=== PATIENT | male | born 1960 | race Caucasian/White ===

== ENCOUNTER 2016-07-08 06:01 | Day surgery (SDC) | payer OTHER ==
[2016-07-07 10:19] VITALS: BMI 24.0
[~2016-07-08] VITALS: Ht 185.4 cm; Wt 80.2 kg
[2016-07-08] VITALS (8 sets, daily range): BP systolic 90–132; BP diastolic 50–76; PULSE 54–62; RESP 11–20; Ht 185.4 cm; Wt 80.2 kg
[~2016-07-08 06:01] MED LIST: SOD CHLORIDE 0.9% 1,000 ML IV SCH
[2016-07-08] MEDS ORDERED: SIMV-39 PO (06:46)
[2016-07-08] MEDS ORDERED: LISI20TA11 PO (06:46)
[2016-07-08] MEDS ORDERED: LIDOCAINE 2% (MDV) 20 ML INJ ONE (07:29)
[2016-07-08] MEDS ORDERED: POLYMYXIN/BACITRACIN 1L IRRIG ONE (07:29)
[2016-07-08] MEDS ORDERED: BUPIVACAINE 0.5% (SDV) 30 ML INJ ONE (07:29)
[2016-07-08] MEDS ORDERED: BUPIVACAINE 0.25% (MPF) 30 ML INJ ONE (07:29)
[2016-07-08] MEDS ORDERED: CEFAZOLIN 2 GM/50 ML (PMX) 50 ML IVPB ONE (08:00)
[2016-07-08] MEDS ORDERED: MIDAZOLAM 1 MG/ML 2 ML INJ ONE (08:04)
[2016-07-08] MEDS ORDERED: PROPOFOL 20 ML ONE (08:04)
[2016-07-08] MEDS ORDERED: FENTAnyl 50 MCG/ML VIAL ONE (08:04)
[2016-07-08] MEDS ORDERED: METOCLOPRAMIDE 10 MG INJ ONE (08:17)
[2016-07-08] MEDS ORDERED: DEXAMETHASONE 4 MG/ML 1 ML INJ ONE (08:17)
[2016-07-08] MEDS ORDERED: KETOROLAC 30 MG INJ ONE (08:17)
[2016-07-08] MEDS ORDERED: ONDANSETRON 4 MG INJ ONE (08:17)
[2016-07-08] MEDS ORDERED: PHENYLephrine (100 MCG/ML) 5ML SYG ONE (08:22)
[2016-07-08] MEDS ORDERED: CEFAZOLIN 1 GM INJ ONE (08:22)
[2016-07-08] MEDS ORDERED: GLYCOPYRROLATE 0.4 MG INJ ONE (08:23)
[2016-07-08] MEDS ORDERED: morphine (1 MG/ML) 10ML SYRINGE IV PRN ×3 (08:30)
[2016-07-08] MEDS ORDERED: MEPERIDINE 25 MG INJ IV PRN (08:30)
[2016-07-08] MEDS ORDERED: ONDANSETRON 4 MG INJ IV PRN (08:30)
[2016-07-08] MEDS ORDERED: HYDROmorphONE (0.2 MG/ML) 10ML SYG IV PRN ×3 (08:30)
[2016-07-08] MEDS ORDERED: ALBUMIN HUMAN 5% 250 ML IV PRN (08:30)
[2016-07-08] MEDS ORDERED: EPHEDrine SULFATE 50 MG/5 ML SYG IV PRN (08:30)
[2016-07-08] MEDS ORDERED: HYDROCODONE/APAP (5/325) TAB PO ONE (09:00)
--- NOTE | 2016-07-08 09:33 | RADRPT ---
PROCEDURE: XR Chest. CLINICAL INDICATION: Preoperative for neck mass. TECHNIQUE: Single frontal view. COMPARISON: None. FINDINGS: The lungs are clear. The heart size is normal. There is no pleural effusion. There is no pneumothorax. IMPRESSION: 1. Normal chest radiograph. RPTAT: QQ .Robert Mcintyre MD, MD Date Time Electronically viewed and signed by .Robert Mcintyre MD, on 07/08/2016 09:32 .R/
--- NOTE | 2016-07-08 10:11 | OPR ---
DATE OF OPERATION: 07/08/2016 INDICATION: This is a 56-year-old male with a posterior neck mass. He requests surgical excision. Risks, alternatives, benefits, and personnel were discussed with the patient. Patient expressed un derstanding and consents to the operation. PREOPERATIVE DIAGNOSIS: Posterior neck tumor. POSTOPERATIVE DIAGNOSIS: Posterior neck tumor. OPERATION PERFORMED: 1. Wide local excision of posterior neck tumor with incision size of 5 cm and mass size 5 cm. 2. Localized adjacent tissue transfer with the use of skin flaps. SURGEON: Gail Lomas MD SPECIMEN: Posterior neck tumor. COMPLICATIONS: None. ANESTHESIA: General. DESCRIPTION OF PROCEDURE: The patient was taken to the OR and prepped and draped in the usual steri le fashion. Surgical timeout was performed. IV antibiotics were given. Transverse incision is mad e with a 15 blade over the tumor. Dissection cautery was carried down to the mass and circumferenti ally excised with cautery. There was good hemostasis. Due to the tissue defect localized adjacent tissue transfer with the use of skin flaps was performed. Multilayer closure with interrupted 3-0 V icryl and skin arsen. Local anesthesia was injected. Dry dressings were applied. Dictated By: GAIL SPANGLER/ANGELO Conf#: [id number] DID#: [id number]
--- NOTE | 2016-07-08 15:41 | RADRPT ---
Vent Rate: 63 bpm RR Interval: 0 msec ID Interval: 216 msec QRS Duration: 116 msec QT Interval: 432 msec QTC Interval: 442 msec P-R-T [place]: 61 - 68 - 61 degrees Sinus rhythm with 1st degree AV block Otherwise normal ECG Electronically Signed By: Satnam Bowen [id number]
== END 2016-07-08 10:10 | disposition home or self-care (01) ==
LOC: SDS 06:01 → EDBD 10:00 → SDS 10:10
PROVIDERS: ATTEND Surgery
DX: D17.0 Benign lipomatous neoplasm of skin and subcutaneous tissue of head, face and neck (principal); I10 Essential (primary) hypertension; E78.5 Hyperlipidemia, unspecified
CPT/HCPCS: 14040; 71010; 88307; 93005; J0690; J1100; J1885; J2250; J2370; J2405; J2765; J3010; Z7512; Z7610

== ENCOUNTER 2016-07-26 07:36 | Day surgery (SDC) | payer OTHER ==
[~2016-07-26] VITALS: Ht 185.4 cm; Wt 78.8 kg
[2016-07-26] VITALS (8 sets, daily range): BP systolic 109–127; BP diastolic 69–75; PULSE 60–72; RESP 13–21; Ht 185.4 cm; Wt 78.8 kg
[~2016-07-26 07:36] MED LIST changes: +LISI20TA11 PO; +SIMV-39 PO; -SOD CHLORIDE 0.9% 1,000 ML IV SCH
[2016-07-26] MEDS ORDERED: MIDAZOLAM 1 MG/ML 2 ML INJ ONE ×2 (10:30)
[2016-07-26] MEDS ORDERED: FENTAnyl 50 MCG/ML VIAL ONE (10:31)
--- NOTE | 2016-07-26 13:02 | GILP ---
DATE OF PROCEDURE: 07/26/2016 PROCEDURE: Colonoscopy. SURGEON: Sarahi Mckoy MD INDICATION: A 56-year-old male undergoing this procedure for colon cancer screening. The risks of the procedure, related and unrelated complications, anesthetic risks, sedative risks, alternatives d iscussed and informed consent was obtained. DESCRIPTION OF PROCEDURE: The patient was brought to the GI lab, sedated with Versed 3 mg, fentanyl 75 mg. After optimal sedation, digital examination done, which was normal. Scope was passed with much ease into rectum, advanced through sigmoid, descending, transverse colon all the way into cecum . Cecum and the pre-cecal area was filled with semi-solid stool, but 90% to 95% visibility was good . Appendiceal orifice identified. IC valve identified. Peeped into terminal ileum which was lexa l. The rest of the colon was normal. There were a few diverticula seen in the left side of the col on. Retroversion done which was normal. External hemorrhoids identified. IMPRESSION: 1. Normal findings all the way into the cecum. 2. Diverticulosis. 3. External hemorrhoids. 4. Clarity was good. 5. Cleanliness was good to adequate. PLAN: Stay on high-fiber diet. Dictated By: SARAHI GRANT/ANGELO Conf#: [id number] DID#: [id number] CC: SARAHI MCKOY MD; ;*EndCC*
== END 2016-07-26 12:21 | disposition home or self-care (01) ==
LOC: GIL 07:36
PROVIDERS: ATTEND Internal Medicine Gastroenterology
DX: Z12.11 Encounter for screening for malignant neoplasm of colon (principal); K57.90 Diverticulosis of intestine, part unspecified, without perforation or abscess without bleeding; K64.4 Residual hemorrhoidal skin tags
CPT/HCPCS: 45378; J2250; J3010; Z7610